=== PATIENT | male | born 1975 | race Caucasian/White ===

== ENCOUNTER → 2020-04-07 15:18 | Outpatient (BNVA) | payer MEDICAID, SELFPAY | PROVIDERS: Referring Provider Family Medicine; Visit Provider Orthopaedic Surgery | DX: M25.512 Pain in left shoulder (principal) | CPT/HCPCS: 73030 ==

== ENCOUNTER 2020-07-13 06:00 | Outpatient (RCR) | payer MEDICAID, SELFPAY | END 2020-08-12 23:59 | disposition home or self-care (01) | LOC: MPT 06:00 | PROVIDERS: PCP Family Medicine; Referring Provider Family Medicine; Visit Provider Family Medicine | DX: M54.5 Low back pain (principal); G89.29 Other chronic pain | CPT/HCPCS: 97110; 97140; 97161; 97530 ==

== ENCOUNTER 2020-07-30 08:56 | Outpatient (CLI) | payer MEDICAID, SELFPAY ==
--- NOTE | 2020-07-30 09:14 | CT_ITS ---
WS: [id number] CT scan of the thoracic aorta. Additional two-dimensional coronal and sagittal reconstruction was per formed. MIP images were also performed. 07/30/2020 Clinical Data: ABNORMAL CHEST X-RAY Comparison: None. DLP: 1529.[address] scans at [facility] use at least one of these dose optimization techniques: automat ed exposure control; mA and/or kV adjustment per patient size (includes targeted exams where dose is matched to clinical indication); or iterative reconstruction. Findings: Thoracic aorta: The thoracic aorta shows no aneurysm. The ascending portion of the aorta measures 4.5 cm. The arch an d descending thoracic aorta show no abnormalities. The proximal abdominal aorta is unremarkable. The celiac artery origin is visible. Chest findings: No nodules, masses or effusions are seen. There is no pneumonia or pneumothorax. The heart is normal with no pericardial effusion. The pulmonary arteries to renal system shows no abnormalities. The trac hea bifurcates normally into the bronchi. There is a small hiatal hernia. The thoracic vertebral bodi es show minimal osteoarthritic change. Upper abdominal findings: The visualized liver, spleen, pancreas, gallbladder, adrenal glands and superior poles of the kidneys show no abnormalities. CT/CT angio chest [id number] Impression: 1. Ascending thoracic aorta measures 4.5 cm but no aneurysm is seen. 2. Negative for acute cardiopulmonary disease.
[2020-07-30] MEDS: iohexol 350 mg/mL 100 mL Btl IV (09:58)
== END 2020-07-30 08:57 | disposition home or self-care (01) ==
LOC: RADWPI 09:00
PROVIDERS: PCP Family Medicine; Visit Provider Family Medicine
DX: R06.00 Dyspnea, unspecified (principal); R93.89 Abnormal findings on diagnostic imaging of other specified body structures
CPT/HCPCS: 71275; Q9967

== ENCOUNTER 2020-08-13 06:00 | Outpatient (RCR) | payer MEDICAID, SELFPAY | END 2020-09-12 23:59 | disposition home or self-care (01) | LOC: MPT 06:00 | PROVIDERS: PCP Family Medicine; Referring Provider Family Medicine; Visit Provider Family Medicine | DX: M54.5 Low back pain (principal) | CPT/HCPCS: 97110; 97140 ==

== ENCOUNTER 2020-09-01 11:35 | Outpatient (CLI) | payer MEDICAID, SELFPAY ==
[2020-09-01 11:44] VITALS: BMI 26.9
--- NOTE | 2020-09-01 11:44 | ECG_ITS ---
[facility] Test Date: 2020-09-01 Pat Name: Dawson Ferrell Department: Room: Gender: Male Manager Construction: : 1975 Requested By: Peggy Early Order Number: [id number] Lutz MD: Peggy Early M.D. Interpretive Statements NAME OF STUDY: TREADMILL STRESS TEST INDICATION: Dyspnea on exertion Baseline blood pressure of 163/94 mm Hg, heart rate 87 beats per minute and oxygen saturation 97%. EKG showed normal sinus rhythm, normal axis with possible old septal infarct. The patient exercised for 11 minutes 55 seconds on a standard Cesar protocol. Patient attained a maximum heart rate of 167 beats per minute(95% of the maximum predicted heart rate) with a blood pressure at the peak exercise of 219/93 mm Hg and oxygen saturation 92%. The EKG at the peak exercise revealed sinus tachycardia with no significant ST-T wave changes. Patient did not have any chest pain or any significant arrhythmis with the exercise. Study was terminated to intraprocedural shortness of breath and fatigue. During the recovery phase, there were no new changes. Blood pressure at the end of the recovery phase was 153/97 mm Hg with a heart rate of 99 beats per minute and oxygen saturation 97%. CONCLUSION: 1. Normal EKG response to treadmill exercise. 2. No exercise-induced chest pain or cardiac arrhythmia. 3. Excellent exercise tolerance, attained a maximum of 13.5 METs. Maximum VO2 of 47.3 mL/kg/min. 4. Baseline hypertension with hypertensive response to exercise. Electronically Signed On 09-02-2020 12:46:39 TECHNOLOGY METHODOLOGY CONSULTANT by Peggy Early M.D. [id number]
[2020-09-01 12:46] VITALS: BP 153/97; PULSE 98
--- NOTE | 2020-09-01 14:15 | USCV_ITS ---
Dawson Ferrell Age: 45 Gender: M : 1975 Exam Date: 09/01/2020 13:59 Ordering Phys: Peggy Early MD ([email or web address]) Technologist: Yandel Art Exam Location: [facility] [place] Indication: SOB BP: 130 / 75 HR: 86 Rhythm: Sinus Technical Quality: Adequate MEASUREMENTS (Male / Female) Normal Values 2D ECHO LV Diastolic Diameter PLAX 3.9 cm 4.2 - 5.9 / 3.9 - 5.3 cm LV Systolic Diameter PLAX 2.0 cm IVS Diastolic Thickness 0.9 cm 0.6 - 1.0 / 0.6 - 0.9 cm IVS Systolic Thickness 1.2 cm LVPW Diastolic Thickness 0.8 cm 0.6 - 1.0 / 0.6 - 0.9 cm LVPW Systolic Thickness 1.1 cm LVOT Diameter 2.1 cm LV Ejection Fraction 2D Teich 78.2 % LA Diameter 4.1 cm LA Width 4.3 cm LA Height 3.6 cm RA Width 3.6 cm RA Height 3.4 cm Aorta at Sinotubular Diameter 2.9 cm M-MODE LV Diastolic Diameter MM 5.5 cm 4.2 - 5.9 / 3.9 - 5.3 cm LV Systolic Diameter MM 3.2 cm LV Ejection Fraction MM Teich 72.4 % IVS Diastolic Thickness MM 1.0 cm 0.6 - 1.0 / 0.6 - 0.9 cm IVS Systolic Thickness MM 1.6 cm LVPW Diastolic Thickness MM 1.2 cm 0.6 - 1.0 / 0.6 - 0.9 cm LVPW Systolic Thickness MM 1.8 cm RV Diastolic Diameter MM 1.1 cm Aortic Annulus Diameter 3.9 cm LA Ao Ratio MM 1.0 MV E Point Septal Separation 1.0 cm DOPPLER AV Peak Velocity 137.0 cm/s LVOT Peak Velocity 101.0 cm/s AV Area Cont Eq vti 3.2 cm squared AV Area Cont Eq pk 2.6 cm squared MV Area PHT 5.0 cm squared Mitral E to A Ratio 0.8 MV E' Velocity 43.5 cm/s Mitral E to MV E' Ratio 8.5 Mitral E to LV E' Lateral Ratio 7.4 Mitral E to LV E' Septal Ratio 10.1 TR Peak Velocity 145.7 cm/s TR Peak Gradient 8.5 mmHg TV Peak E Velocity 98.0 cm/s Right Atrial Pressure 3.0 mmHg Pulmonary Artery Systolic Pressu 11.5 mmHg PV Peak Velocity 89.0 cm/s FINDINGS Left Ventricle Normal left ventricular cavity size. Normal left ventricular systolic function. Left ventricular ejection fraction is estimated at 65 %. No diagnostic regional wall motion abnormalities. Normal diastolic function. Right Ventricle Normal right ventricular size and systolic function. Right ventricular systolic pressure 11.5 mmHg. Right Atrium Normal right atrial size. Left Atrium Normal left atrial size. Mitral Valve Structurally normal mitral valve. No mitral valve stenosis. Trace mitral valve regurgitation. Aortic Valve Aortic valve not well visualized. No aortic valve stenosis. No aortic valve regurgitation. Tricuspid Valve Tricuspid valve not well visualized. Probably normal tricuspid valve. Pulmonic Valve Pulmonic valve not well visualized. No pulmonary valve stenosis. Trace pulmonary valve regurgitation. Pericardium No pericardial effusion. Aorta Normal-sized aortic root. CONCLUSIONS 1. This is a technically difficult study. 2. Normal left ventricular cavity size. Normal left ventricular systolic function. Left ventricular ejection fraction is estimated at 65 %. No diagnostic regional wall motion abnormalities. Normal diastolic function. 3. Normal pulmonary artery pressure. 4. No significant valvular abnormality. 5. No prior similar studies to compare. Peggy Early MD (Electronically Signed) Final Date: 01 September 2020 16:56 S
== END 2020-09-01 11:36 | disposition home or self-care (01) ==
LOC: CDL 11:36
PROVIDERS: PCP Family Medicine; Visit Provider Internal Medicine Cardiovascular Disease
DX: R06.00 Dyspnea, unspecified (principal); R06.02 Shortness of breath
CPT/HCPCS: 93017; 93306

== ENCOUNTER 2020-09-28 10:45 | Outpatient (CLI) | payer MEDICAID, SELFPAY ==
--- NOTE | 2020-09-28 10:53 | MR_ITS ---
WS: [id number] MRI THORACIC SPINE noncontrast. HISTORY: PAIN IN THORACIC SPINE COMPARISON: None available. TECHNIQUE: Multiplanar sequences are performed in sagittal and axial planes. Normal posterior thoracic alignment. Small hypertrophic osteophytes. There is a Schmorl's node involv ing the superior endplate of T11. No compression upon the cord. No marrow edema or fracture. T1-2: Normal. T2-3: Mild RIGHT foraminal narrowing due to osteophytes and facet arthritis. T3-4: Normal. T4-5: Normal. T5-6: Small RIGHT paracentral disc protrusion contacting the ventral thecal sac. Moderate RIGHT fora kendra narrowing. T6-7: Small osteophyte or disc LEFT paracentral without significant stenosis. T7-8: Normal. T8-9: Normal. T9-10: Normal. T10-11: Normal. T11-12: Mild bilateral facet arthritis without stenosis. Paravertebral soft tissues are negative. MR/MR thoracic spin wo con* [id number] IMPRESSION: 1. No high-grade stenosis. 2. Small RIGHT paracentral disc protrusion at T5-6 with mild contact on the co rd. 3. Moderate RIGHT foraminal stenosis at T5-6. 4. Subacute to remote Schmorl's node at T11.
--- NOTE | 2020-09-28 10:53 | MR_ITS ---
WS: [id number] MRI LEFT SHOULDER HISTORY: PAIN IN LEFT SHOULDER, prior shoulder surgery. COMPARISON: Radiographs 04/07/2020. TECHNIQUE: Multiplanar sequences of the shoulder joint are submitted. Numerous micrometallic artifact fragments are noted in the soft tissues. Patient has several anchors within the humeral head. Probable prior resection of the distal clavicle. Postoperative changes are noted and there is mild wi dening of the AC joint. No encroachment or impingement upon the rotator cuff. There is a small amount of fluid extending through the AC joint. There is also small amount of fluid in the subacromial and subdeltoid bursa. No os acromion. Biceps tendon is in normal position with some increased fluid withi n the tendon sheath. There is a small amount of debris within the tendon sheath. No displacement or t ear. No full-thickness rotator cuff tears are identified. There is no muscle edema or significant atrophy. There is a small amount of fluid in the subscapularis bursa. Irregularity along the bursal and artic ular surfaces of the supraspinatus tendon Very small amount of increased signal at the insertion site of the supraspinatus. Humeral head is slightly high riding. Mild narrowing of the glenohumeral joint. There is significant fraying and possible tear involving th e posterior labrum. There is abnormal signal within the labrum. MR/MR shoulder LT wo con* [id number] IMPRESSION: 1. Increase fluid in the biceps tendon sheath. There is a small amount of debr is within the tendon sheath but no tear. 2. Increase fluid through the AC ligament. 3. Suspect torn and avulsed posterior labrum. 4. Fraying along the articular and bursal surfaces of the of the supraspinatus with suspicion for a very small insertion site tear of the supraspinatus.
== END 2020-09-28 10:46 | disposition home or self-care (01) ==
LOC: RADWPI 10:46
PROVIDERS: PCP Family Medicine; Visit Provider Family Medicine
DX: M25.512 Pain in left shoulder (principal); M51.24 Other intervertebral disc displacement, thoracic region; M48.04 Spinal stenosis, thoracic region; M51.44 Schmorl's nodes, thoracic region
CPT/HCPCS: 72146; 73221

== ENCOUNTER 2020-10-11 06:00 | Outpatient (CLI) | payer MEDICAID, SELFPAY | END 2020-10-11 06:01 | disposition home or self-care (01) | LOC: LAB 03-31 13:42 | PROVIDERS: PCP Family Medicine; Visit Provider Internal Medicine | DX: M79.2 Neuralgia and neuritis, unspecified (principal) | CPT/HCPCS: 36415; 81291; 82550; 82607; 82746; 83090; 85651; 86140 ==

== ENCOUNTER 2022-03-29 06:21 | Outpatient (CLI) | payer MEDICAID, SELFPAY ==
--- NOTE | 2022-03-29 | US_ITS ---
WS: [id number] Abdomen ultrasound, 03/29/2022 Clinical Data: ABD PAIN Comparison: None. Findings: The pancreas shows no cyst, pseudocyst or evidence of pancreatitis. The liver shows no cysts, masses or dilated intrahepatic ducts. The liver measures 19.71 cm. The port al vein shows normal flow. The gallbladder has no stones or sludge. The wall measures 0.2 cm with no pericholecystic fluid. The common bile duct is 0.5 cm and no intraductal abnormalities are noted. The right kidney is 10.3 cm. No cysts, masses or hydronephrosis is seen. The left kidney is 10.4 cm. No cysts, masses or hydronephrosis is seen. The abdominal aorta is not dilated and the inferior vena cava has normal flow. No vascular abnormalit ies are seen. The spleen measures cm and there are no intrasplenic masses or capsular abnormalities. US/US abdomen complete* [id number] Impression: Hepatomegaly.
== END 2022-03-29 06:22 | disposition home or self-care (01) ==
LOC: RAD 06:23
PROVIDERS: PCP Family Medicine; Visit Provider Nurse Practitioner Family
DX: R10.9 Unspecified abdominal pain (principal); R16.0 Hepatomegaly, not elsewhere classified
CPT/HCPCS: 76700

== ENCOUNTER 2022-06-08 06:00 | Outpatient (RCR) | payer MEDICAID, SELFPAY | END 2022-06-12 23:59 | disposition home or self-care (01) | LOC: SPT 06:00 | PROVIDERS: PCP Family Medicine; Visit Provider Nurse Practitioner Family | DX: M54.50 Low back pain, unspecified (principal); G89.29 Other chronic pain | CPT/HCPCS: 97110; 97140; 97161; 97530 ==

== ENCOUNTER 2022-06-13 06:00 | Outpatient (RCR) | payer MEDICAID, SELFPAY | END 2022-07-12 23:59 | disposition home or self-care (01) | LOC: SPT 06:00 | PROVIDERS: PCP Family Medicine; Visit Provider Nurse Practitioner Family | DX: M54.50 Low back pain, unspecified (principal); G89.29 Other chronic pain; M54.9 Dorsalgia, unspecified | CPT/HCPCS: 97110; 97140; 97530 ==

== ENCOUNTER 2022-08-13 06:00 | Outpatient (RCR) | payer MEDICAID, SELFPAY | END 2022-09-12 23:59 | disposition home or self-care (01) | LOC: SPT 06:00 | PROVIDERS: PCP Family Medicine; Visit Provider Nurse Practitioner Family | DX: M54.50 Low back pain, unspecified (principal); G89.29 Other chronic pain | CPT/HCPCS: 97140; 97530 ==

== ENCOUNTER 2022-11-07 11:01 | Outpatient (CLI) | payer MEDICAID, SELFPAY ==
--- NOTE | 2022-11-07 | MR_ITS ---
WS: [id number] MRI LUMBAR SPINE NONCONTRAST HISTORY: DORSALGIA, LT SHOULDER PAIN COMPARISON: None available. TECHNIQUE: Sagittal and axial multisequence imaging is submitted. Normal lumbar alignment with no compression fractures or marrow edema. Mild disc desiccation at L4-5 and L5-S1. Conus terminates normally at L1. L1-L2: Normal. L2-L3: Mild ligamentum flavum and facet arthritis. L3-L4: Mild osteophytic ridging with ligamentum flavum and facet arthritis. No significant stenosis. L4-L5: Diffuse annular disc bulging with osteophytic ridging. Ligamentum flavum and facet arthritis. Mild encroachment upon the ventral thecal sac and narrowing of the subarticular recesses. Mild encroa chment upon the traversing L5 nerve roots, RIGHT greater than LEFT. L5-S1: Diffuse annular disc bulging and osteophytic ridging. Mild foraminal narrowing. MR/MR lumbar spine wo con* [id number] IMPRESSION: 1. Very mild degenerative disc disease at L4-5 and L5-S1. 2. Mild bilateral subarticular recess encroachment at L4-5 predominantly due t o disc disease. Mild encroachment upon the traversing L5 nerve roots. 3. Very mild foraminal narrowing at L5-S1.
--- NOTE | 2022-11-07 | MR_ITS ---
WS: [id number] MRI LEFT SHOULDER HISTORY: DORSALGIA, LT SHOULDER PAIN COMPARISON: 09/28/2020 TECHNIQUE: Multiplanar sequences of the shoulder joint are submitted. Resection of the distal clavicle. Postsurgical changes along the AC ligament. Only a very small amoun t of fluid in the subdeltoid bursa. No os acromion. Numerous micrometallic artifacts are noted in the soft tissues from prior surgery. Biceps tendon is small caliber in the bicipital groove. There is in creased T2 signal within the biceps tendon at the bicipital groove suggesting a split tear. Moderate glenohumeral joint narrowing with osteophytic ridging around the glenoid and humeral head. A rtifact from prior rotator cuff repair. Several anchors are identified in the humeral head. No defini te rotator cuff tear is identified. Increased signal in the insertion site of the supraspinatus may b e a very small tear. No significant muscle atrophy. No edema. Abnormal signal at the base of the anterior labrum. Again noted is a possible avulsion involving the posterior labrum which is appears improved. Mild thickening involving the axillary pouch. MR/MR shoulder LT wo con* [id number] IMPRESSION: 1. Prior resection distal LEFT clavicle. 2. Prior rotator cuff repair. Several anchors are noted in the humeral head. 3. Split tear biceps tendon the bicipital groove. There is less fluid in the t endon sheath and the split tear appears new since 09/28/2020. 4. Abnormal signal in the anterior and posterior labrum suspicious for labral tears. Mild improvement in abnormal signal in the posterior labrum but new unde rcutting involving the anterior labrum. 5. Moderate narrowing of the glenohumeral joint with osteophytic ridging and l oss of cartilage.
--- NOTE | 2022-11-07 11:10 | US_ITS ---
WS: [id number] ULTRASOUND SOFT TISSUES LEFT posterior neck. HISTORY: SOFT TISSUE LUMP ON LEFT SIDE OF NECK COMPARISON: None available. TECHNIQUE: 2-D and color Doppler imaging is submitted. Intermediate soft tissue mass along the posterior LEFT neck in the region of the palpable abnormality . Mass measures 4.1 x 1.0 x 2.5 cm. There is displacement of the adjacent fascial planes. Most consis tent with a lipoma. US/US soft tissue head neck [id number] IMPRESSION: Soft tissue mass in the posterior LEFT neck is most consistent with a benign li shaun.
== END 2022-11-07 11:02 | disposition home or self-care (01) ==
LOC: RAD 11:04
PROVIDERS: PCP Nurse Practitioner Family; Visit Provider Nurse Practitioner Family
DX: R22.1 Localized swelling, mass and lump, neck (principal); S46.812A Strain of other muscles, fascia and tendons at shoulder and upper arm level, left arm, initial encounter; X58.XXXA Exposure to other specified factors, initial encounter; M25.712 Osteophyte, left shoulder; M47.816 Spondylosis without myelopathy or radiculopathy, lumbar region; M51.36 Other intervertebral disc degeneration, lumbar region; M48.061 Spinal stenosis, lumbar region without neurogenic claudication
CPT/HCPCS: 72148; 73221; 76536